=== PATIENT | male | born 1975 | race Caucasian/White ===

== ENCOUNTER → 2018-02-21 | Outpatient (CLI) | payer BC ==
[~2018-02-21] MED LIST: E-Z-GAS II EFFERVESCENT PACKET (SODIUM BICARB./CITRIC ACID/SIMETHICONE) As Ordered; E-Z-HD 98% w/w 340GM SUSP BTL As Ordered; E-Z-PAQUE 96% w/w SUSP 176GM BTL As Ordered
== END ==
LOC: M RAD 07:41
DX: R13.10 Dysphagia, unspecified (principal)
CPT/HCPCS: 74241

== ENCOUNTER → 2020-12-27 | Outpatient (CLI) | payer SELFPAY | LOC: M LABSMTC 10:12 | PROVIDERS: ATTEND Pediatrics | DX: Z11.52 Encounter for screening for COVID-19 (principal) ==

== ENCOUNTER → 2021-04-03 | Outpatient (CLI) | payer BC ==
[2021-04-03 17:32] LABS: HEMOGLOBIN A1c 5.3 %
[2021-04-03 17:43] LABS: ALBUMIN 3.8 GM/DL (3.2-5.2); ALT/SGPT 26 U/L (12-78); BILIRUBIN,TOTAL 0.7 MG/DL (0.2-1.0); BLOOD UREA NITROGEN 14 MG/DL (7-18); CALCIUM LEVEL 8.9 MG/DL (8.5-10.1); CARBON DIOXIDE LEVEL 27 MEQ/L (21-32); CHLORIDE LEVEL 106 MEQ/L (98-107); CHOLESTEROL LEVEL 186 MG/DL (<200); CREATININE FOR GFR 0.85 MG/DL (0.70-1.30); GLOMERULAR FILTRATION RATE > 60.0 (>60); GLUCOSE, FASTING 74 MG/DL (70-100); HDL CHOLESTEROL 40 MG/DL (>40); LDL CHOLESTEROL 110 MG/DL (<100); NON-HDL-C 146 MG/DL; RHEUMATOID FACTOR QUANT < 10.0 IU/ML (<15.0); SODIUM LEVEL 139 MEQ/L (136-145); TRIGLYCERIDES LEVEL 179 MG/DL (<150)
[2021-04-03 17:46] LABS: VITAMIN B12 LEVEL 376 PG/ML (247-911)
== END ==
LOC: M PLALAB 14:33
PROVIDERS: ATTEND Nurse Practitioner Adult Health
DX: Z00.00 Encounter for general adult medical examination without abnormal findings (principal); R53.83 Other fatigue; Z13.220 Encounter for screening for lipoid disorders; Z83.3 Family history of diabetes mellitus; Z82.61 Family history of arthritis

== ENCOUNTER 2023-09-23 09:11 | Day surgery (SDC) | payer BC ==
[~2023-09-23] VITALS: Ht 175.3 cm; Wt 111.1 kg
[~2023-09-23 09:11] MED LIST changes: +BUPR300T92 PO; -E-Z-GAS II EFFERVESCENT PACKET (SODIUM BICARB./CITRIC ACID/SIMETHICONE) As Ordered; -E-Z-HD 98% w/w 340GM SUSP BTL As Ordered; -E-Z-PAQUE 96% w/w SUSP 176GM BTL As Ordered; +NS 1,000 ML IV ONE
[2023-09-23] MEDS ORDERED: propofoL 200 MG/20 ML VIAL As Ordered ONE (10:53)
[2023-09-23 10:58] VITALS: TEMP 97.6
[2023-09-23 11:15] VITALS: BP 124/59; O2SAT 98
== END 2023-09-23 11:18 | disposition home or self-care (01) ==
LOC: M OPP 09:11
PROVIDERS: ATTEND Internal Medicine Gastroenterology
DX: Z12.11 Encounter for screening for malignant neoplasm of colon (principal); K63.5 Polyp of colon; Z79.899 Other long term (current) drug therapy

== ENCOUNTER → 2024-02-05 | Outpatient (CLI) | payer BC ==
[~2024-02-05] MED LIST changes: -NS 1,000 ML IV ONE
== END ==
LOC: M WHC 14:58
PROVIDERS: ATTEND Nurse Practitioner Adult Health
DX: N50.812 Left testicular pain (principal)